=== PATIENT | female | born 1950 | race Asian ===

== ENCOUNTER 2017-02-01 08:05 | Inpatient (IN) | payer MEDICARE ==
[2017-02-01 08:55] LABS: ABSOLUTE NEUTROPHIL COUNT 10.9 K/mm3 (1.8-7.7); BASO % 0.2 % (0.2-1.0); HEMATOCRIT 27.3 % (37.0-47.0); HEMOGLOBIN 8.7 gm/l (12.0-16.0); IMM NEUT% 0.3 % (0-1); LYMPH # 1.1 (1.0-4.8); LYMPH % 8.8 % (15-45); MEAN CELL VOLUME 88.6 fl (81.0-99.0); MEAN CORPUSCULAR HEMOGLOBIN 28.2 pg (27.0-31.0); MEAN CORPUSCULAR HGB CONC 31.9 g/dl (33.0-37.0); MEAN PLATELET VOLUME 10.4 fl (7.4-10.4); MONO # 0.7 (0.0-0.8); MONO % 5.4 % (4-12); NEUT % 85.3 % (43-75); PLATELET COUNT 331 K/mm3 (130-400); RED CELL DISTRIBUTION WIDTH 13.2 % (11.5-14.5)
[2017-02-01 09:08] LABS: SPECIFIC GRAVITY 1.015 (1.001-1.030); URINE BILIRUBIN NEGATIVE (NEGATIVE); URINE BLOOD NEGATIVE (NEGATIVE); URINE GLUCOSE (UA) NEGATIVE (NEGATIVE); URINE LEUKOCYTE ESTERASE TRACE (NEGATIVE); URINE NITRITE NEGATIVE (NEGATIVE); URINE PROTEIN NEGATIVE (NEGATIVE); URINE UROBILINOGEN NORMAL (0-1 mg/dl)
[2017-02-01 09:09] LABS: URINE APPEARANCE CLEAR; URINE COLOR YELLOW
[2017-02-01 09:10] LABS: TROPONIN I 0.11 ng/ml (0.0-0.06)
[2017-02-01 09:12] LABS: ALBUMIN 2.3 gm/dL (3.5-5.7)
--- NOTE | 2017-02-01 09:18 | CT ---
HEAD W/O CON COMPARISON: Head CT, 02/10/2011 HISTORY: Acute confusion. TECHNIQUE: Using a [employer] Aquilion [address] scanner, images were obtained through the head. An automated dose reduction technique was used to minimize patient radiation dose. DOSE INFORMATION: CTDIvol (mGy): 51.70 DLP(mGycm): 1412.90 FINDINGS: Mass: None Intracranial Hemorrhage: None Acute Infarction: None Cerebral hemispheres: No acute finding. Old focus of decreased attenuation in the left external capsule. Basal ganglia: Normal Thalami: Normal Brainstem: Normal Cerebellum: Normal Ventricles: Normal Basilar cisterns: Normal Corpus callosum: Normal Pituitary fossa: Normal Middle ears and mastoid air cells: Normal Orbits and sinuses: Normal Skull and scalp: Normal Dural sinuses and vessels: Normal IMPRESSION: 1. No acute finding. Old small lacunar infarct, left external capsule. The report was sent to the emergency department electronic medical record system, 02/01/2017 at 9:19
[2017-02-01] MEDS ORDERED: PANTOPRAZOLE SODIUM 40 MG VIAL IV ONE ×3 (09:23→13:15)
--- NOTE | 2017-02-01 09:23 | RAD ---
CHEST-AP BEDSIDE COMPARISON: Portable chest x-ray, 02/10/2011 HISTORY: 66-year-old female with confusion. 4 days ago, cough and abnormal voice. Patient collapsed last night and today is confused. Emesis. FINDINGS: Views: Frontal chest. Lungs: Asymmetry and increased attenuation, greater on the left than the right. Heart and vessels: Normal Trachea and bronchi: Normal Mediastinum and celio: Normal Costophrenic sulci: Normal Chest wall and bones: Normal Upper abdomen: Normal. IMPRESSION: Infiltrate causing increased density in the left lung, most likely involving the left lower lobe. Evidence of pneumonia.
[2017-02-01] MEDS ORDERED: FAMOTIDINE 10 MG/ML 2ML VIAL ONE (09:24)
[2017-02-01 09:28] LABS: URINE BACTERIA RARE; URINE EPITHELIAL CELLS 0-1 /hpf; URINE RBC RARE /hpf; URINE WBC 0-2 /hpf
[2017-02-01] MEDS ORDERED: POTASSIUM CHLORIDE 20 MEQ TAB.PRT.SR ONE ×2 (10:03→10:12)
[2017-02-01] MEDS ORDERED: POTASSIUM CHLORIDE 10MEQ/100ML 100 ML IV ONE (10:03)
[2017-02-01] MEDS ORDERED: CEFTRIAXONE 1 GRAM DUPLEX 50 ML IV ONE (10:03)
[2017-02-01] MEDS ORDERED: BISACODYL 5 MG TABLET.EC PO PRN (10:48)
[2017-02-01] MEDS ORDERED: MENTHOL/CETYLPYRD 1 EACH LOZENGE PO PRN (10:48)
[2017-02-01] MEDS ORDERED: BISACODYL 10 MG SUP PR PRN (10:48)
[2017-02-01] MEDS ORDERED: SODIUM CHLORIDE 0.9% 100 ML IV PRN (10:48)
[2017-02-01] MEDS ORDERED: BLISTEX LIPSTICK 1 EACH TP PRN (10:48)
[2017-02-01] MEDS ORDERED: MAGNESIUM HYDROXIDE 30 ML UDCUP PO PRN (10:48)
[2017-02-01] MEDS ORDERED: POTASSIUM CHLORIDE 60 MEQ in SODIUM CHLORIDE 0.9% 500 ML IV ONE (11:00)
[2017-02-01 11:54] VITALS: BMI 29.8
[2017-02-01] MEDS: PANTOPRAZOLE SODIUM 80 MG in SODIUM CHLORIDE 0.9% 100 ML IV SCH ×2 (12:00→21:26)
[2017-02-01] MEDS: AZITHROMYCIN 500 MG in SODIUM CHLORIDE 0.9% 250 ML IV SCH (12:00)
[2017-02-01] MEDS ORDERED: PUMP TUBING ONE (12:02)
[2017-02-01] MEDS ORDERED: QUETIAPINE FUMARATE 50 MG TABLET PO PRN (13:45)
[2017-02-01] MEDS ORDERED: PNEUMOCOCCAL 23-VAL P-SAC VAC 0.5 ML VIAL IM V ONE (14:09)
[2017-02-01 14:34] LABS: HEMATOCRIT 27.4 % (37.0-47.0); HEMOGLOBIN 8.6 gm/l (12.0-16.0)
[2017-02-01] MEDS: ACETAMINOPHEN 325 MG TABLET PO PRN (15:02)
[2017-02-01] MEDS: CLONAZEPAM 0.5 MG TABLET PO PRN (15:02)
[2017-02-01] MEDS: NS/Potassium Chlor 20 mEq 1,000 ML IV SCH (15:40)
--- NOTE | 2017-02-01 15:51 | HP ---
JENY YE [id number] DATE OF ADMISSION: 02/01/2017 CHIEF COMPLAINT: Confusion. HISTORY OF PRESENT ILLNESS: The patient is a 66-year-old female with a past medical history significant for prior strokes, chronic essential hypertension and chronic depression with anxiety who was first noted to have some confusion yesterday evening at around 10:00 P.M. This morning she required help to get to the bathroom and had increased weakness. Her legs gave-out and she was unable to get off the floor. She has had chronic cough, reportedly nonproductive. In the emergency department her workup included a CT of the head and a chest x-ray, showing infiltrate in the left lung base. A CT of the head showed evidence of an old lacunar infarct. The emergency department physician noted some dried maroon-colored crust on the patient's clothing. Apparently she has had some vomiting at home and the patient was hemoccult positive, suspicious for an upper GI bleed. The patient was referred to the Hospitalist Service for admission and placed in the Intermediate Care Unit due to concerns about active bleeding. The patient also had evidence of acute kidney injury and acute blood loss anemia, with a hemoglobin of 8.7. REVIEW OF SYSTEMS: Review of systems is really not possible due to the patient's confusion which is still present. PAST MEDICAL HISTORY: Significant for: 1. Severe chronic depression. The patient has had multiple psychiatric hospitalizations and has even reached a point of being psychotic from her depression. 2. She also has had some chronic anxiety. 3. A history of conversion disorder. 4. She has had hematochezia in the past. She was actually scheduled for an outpatient colonoscopy tomorrow. She had a screening colonoscopy in the past, which has been negative. 5. She has a history of stroke symptoms in the past. Her head CT showed evidence of an old small lacunar infarct involving the left internal capsule. 6. She has sleep apnea, but this is untreated. 7. Chronic essential hypertension. 8. She has chronic pain and is on an opioid contract with her primary care provider for management of this. PAST SURGICAL HISTORY: Significant for a previous appendectomy, but I think that is all. ALLERGIES: No known drug allergies. CURRENT MEDICATIONS: Consist of: 1. Seroquel 50 mg at bedtime as needed for sleep. 2. Pravachol 20 mg daily. 3. Percocet 2 every six hours as needed for her chronic pain. 4. Flexeril 10 mg twice daily as needed for spasm. 5. Klonopin 0.5 mg twice daily as needed for anxiety. 6. Amitriptyline 150 mg at bedtime. 7. Abilify 15 mg daily. FAMILY HISTORY: Family history is not well known. SOCIAL HISTORY: The patient is single. She is . She is living with her son who is disabled. She had six children. She has never smoked. She quit drinking alcohol at the age of 64. Prior to that she did drink heavily. She denies any history of illicit drug use. PRIMARY CARE PROVIDER: Doretha Sibley Family Nurse Practitioner. PHYSICAL EXAMINATION: VITAL SIGNS: Body mass index is 29.8. Weight is 83.8 kilograms. Vitals in the emergency department showed a blood pressure as low as 104/62, pulse of 90, respirations 18, and oxygen saturation is 96% on room air. GENERAL: This is a slightly obese elderly female in no acute distress. HEENT: Shows moist pink oral mucosa. NECK: Supple, without lymphadenopathy or thyromegaly. LUNGS: Clear to auscultation bilaterally. CARDIOVASCULAR: Reveals a regular rate and rhythm, without a murmur. ABDOMEN: Obese, soft, nontender and nondistended, with positive bowel sounds. PELVIC: Exam is deferred. RECTAL: Exam performed in the emergency department did show a hemoccult positive stool. EXTREMITIES: Lower extremities show bilateral varicose veins, but no edema. SKIN: Warm, dry and intact. LABORATORY STUDIES: White blood cell count is mildly elevated at 12.8, hemoglobin is 8.7 and platelet count is 331,000. Lactate is 1.9. Chemistry profile shows a sodium of 134, potassium is 2.8, carbon dioxide is 29, BUN is 60 and creatinine 1.5. Troponin-I is elevated at 0.11. Albumin is 2.3. Urinalysis is unremarkable. DIAGNOSTIC IMAGING STUDIES: Included: 1. A chest x-ray, showing an infiltrate in the left base. 2. The CT, with the results as mentioned above. ASSESSMENT: 1. The patient has bacterial pneumonia, community-acquired. She will be treated with Rocephin and Zithromax. 2. She has evidence of acute kidney injury, with her creatinine elevated at 1.5 and a baseline creatinine of 0.2 - 0.9. 3. She has hypokalemia, fairly severe. She has elevated troponin levels. Suspect this is due to the acute kidney injury. She will be given potassium replacement for her hypokalemia. 4. She has evidence of acute blood loss anemia. 5. She has suspected upper GI bleeding based on her presentation and will be treated with a Protonix drip and placed on clear liquids. If her hemoglobin is stable, consider advancing her diet. 6. The patient has evidence of acute metabolic encephalopathy. I suspect this is secondary to the patient's underlying cardiovascular disease combined with the acute infection, and anticipate this should resolve with time and treatment. PLAN: She will be admitted to the Intermediate Care Unit due to the multiple complicated medical problems that she has. VTE risk is moderate and mechanical measures will be used for prophylaxis. cc: Dr. Doretha Sibley
[2017-02-01] MEDS: AMITRIPTYLINE HCL 75 MG TABLET PO SCH (21:31)
[2017-02-01 21:39] LABS: HEMATOCRIT 24.8 % (37.0-47.0)
[2017-02-01 22:01] LABS: CALCIUM 10.9 mg/dL (8.6-10.3)
[2017-02-01] MEDS ORDERED: POTASSIUM CHLORIDE 20 MEQ TAB.PRT.SR PO ONE (22:17)
[2017-02-01] MEDS ORDERED: MAGNESIUM SULFATE 2 G/50 ML 2 G in Premix (Water) 50 ml 1 EACH IV ONE (22:20)
[2017-02-01] MEDS: DOCUSATE SODIUM 100 MG CAPSULE PO SCH (22:42)
[2017-02-01] MEDS ORDERED: MAGNESIUM SULFATE 1 G/100 ML 100 ML IV ONE ×2 (22:44→22:46)
[2017-02-01] MEDS: MAGNESIUM SULFATE 1 G/100 ML 1 G in PREMIX BAG 1 EACH IV SCH (22:56)
[2017-02-02] MEDS: MAGNESIUM SULFATE 1 G/100 ML 1 G in PREMIX BAG 1 EACH IV SCH (00:03)
[2017-02-02] MEDS: CLONAZEPAM 0.5 MG TABLET PO PRN ×2 (00:28→22:49)
[2017-02-02] MEDS: NS/Potassium Chlor 20 mEq 1,000 ML IV SCH ×2 (00:29→08:36)
[2017-02-02 06:09] LABS: ABSOLUTE NEUTROPHIL COUNT 4.2 K/mm3 (1.8-7.7); BASO % 0.3 % (0.2-1.0); EOS # 0.2 (0.0-0.5); EOS % 2.5 % (0.9-2.9); HEMATOCRIT 22.1 % (37.0-47.0); HEMOGLOBIN 7.2 gm/l (12.0-16.0); IMM NEUT% 0.3 % (0-1); LYMPH # 1.8 (1.0-4.8); LYMPH % 26.9 % (15-45); MEAN CORPUSCULAR HEMOGLOBIN 28.7 pg (27.0-31.0); MEAN CORPUSCULAR HGB CONC 32.6 g/dl (33.0-37.0); MEAN PLATELET VOLUME 10.4 fl (7.4-10.4); MONO # 0.5 (0.0-0.8); MONO % 7.9 % (4-12); NEUT % 62.1 % (43-75); PLATELET COUNT 268 K/mm3 (130-400); RED CELL DISTRIBUTION WIDTH 13.6 % (11.5-14.5)
[2017-02-02 06:30] LABS: MAGNESIUM 1.6 mg/dL (1.9-2.7)
[2017-02-02 07:29] LABS: PLATELET ESTIMATE NORMAL (NORMAL)
[2017-02-02] MEDS: PANTOPRAZOLE SODIUM 80 MG in SODIUM CHLORIDE 0.9% 100 ML IV SCH ×2 (08:36→20:12)
[2017-02-02] MEDS: CEFTRIAXONE 1 GRAM DUPLEX 1 G in Premix (D5W) 50 ml 1 EACH IV SCH (09:05)
--- NOTE | 2017-02-02 10:14 | PDOC43 ---
- Subjective Chief Complaint: Confusion, weakness Subjective: Reports Tolerating Diet Well, Reports Urinating Without Difficulty, Reports Other (still confused), Denies Fever - Objective Vital Signs Temperature 98.4 F 02/01/17 23:00 Pulse Rate 76 02/02/17 03:00 Respiratory Rate 26 02/02/17 03:42 Blood Pressure 120/62 02/02/17 03:00 O2 Saturation by Pulse Oximetry 94 02/02/17 03:00 Oxygen Delivery Method Room Air Oxygen Flow Rate 0 Intake and Output 02/01/17 02/02/17 02/03/17 06:59 06:59 06:59 Intake Total 5783 Output Total 2049 Balance 3733 General: Alert, Cooperative, Other (oriented to person and year but thinks that she is in [place]) HEENT: Mucous membr. moist/pink Lungs: Clear to Auscultation Bilaterally Cardiovascular: Regular Rate and Rhythm Abdomen: Soft, Normal Bowel Sounds, Non-Distended, No Tenderness Extremities: No Edema Laboratory 02/02/17 05:30 02/02/17 05:30 02/02/17 02/01/17 05:30 21:25 RBC 2.51 L MCHC 32.6 L Anion Gap 6 L BUN 38 H 49 H Estimated GFR 45 L 38 L Calcium 10.9 H Magnesium 1.6 L 1.0 L Troponin I 0.07 H Current Medications: Current meds reviewed in EMR. 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 Protonix, consult with surgery, consider transfusion if further drop- anticipate EGD this am (4) Hypokalemia Status: AcuteAssessment/Plan: potassium improved from 2.8 to 3.7, unclear cause-will follow (5) Hypomagnesemia Status: AcuteAssessment/Plan: magnesium improving from 1.0 to 1.6 (6) Acute kidney failure Qualifiers: Acute renal failure type: unspecified Qualifier Code: (N17.9) Acute kidney failure, unspecified Status: AcuteAssessment/Plan: Creatinine improved from 1.5 to 1.2 with hydration (7) Troponin level elevated Status: AcuteAssessment/Plan: suspect due to acute kidney injury (8) Depression Qualifiers: Depression Type: unspecified Qualifier Code: (F32.9) Major depressive disorder, single episode, unspecified Status: AcuteAssessment/Plan: chronic, severe, appears stable at baseline VTE Prophylaxis: [facility] measures Disposition: likely home in 1-2 days Additional Comments: likely downgrade to Med/ Surg if EGD is reassuring
[2017-02-02] MEDS ORDERED: D5 1/2NS with 20 mEq KCL 1,000 ML IV SCH (10:15)
[2017-02-02] MEDS ORDERED: LACTATED RINGERS 1,000 ML ONE (10:16)
[2017-02-02] MEDS ORDERED: LACTATED RINGERS 1,000 ML IV.SOLN ONE (11:35)
[2017-02-02] MEDS ORDERED: PROPOFOL 200 MG/20 ML VIAL IV ONE (11:35)
[2017-02-02] MEDS ORDERED: LIDOCAINE 2% (PRES FREE) 5 ML VIAL ONE (11:35)
[2017-02-02] MEDS ORDERED: MIDAZOLAM HCL 1 MG/ML 2ML VIAL ONE (11:35)
[2017-02-02] MEDS ORDERED: GLYCOPYRROLATE 0.2 MG/ML 1ML VIAL ONE (11:35)
[2017-02-02] MEDS ORDERED: KETAMINE HCL UD SYRINGE 100 MG/2 ML IV ONE (11:35)
[2017-02-02] MEDS ORDERED: LIDOCAINE Viscous 2% 15 ML UDCUP ONE (12:03)
[2017-02-02] MEDS: AZITHROMYCIN 500 MG in SODIUM CHLORIDE 0.9% 250 ML IV SCH (12:55)
[2017-02-02] MEDS: ARIPIPRAZOLE 5 MG TABLET PO SCH (13:58)
[2017-02-02] MEDS: Magnesium Oxide 400 MG TABLET PO SCH ×3 (13:58→20:11)
[2017-02-02] MEDS: PRAVASTATIN SODIUM 10 MG TABLET PO SCH (13:58)
[2017-02-02] MEDS: DOCUSATE SODIUM 100 MG CAPSULE PO SCH ×2 (13:58→20:11)
[2017-02-02] MEDS ORDERED: IOPAMIDOL 370 (76%) 100 ML VIAL IV ONE (16:20)
--- NOTE | 2017-02-02 17:11 | CT ---
ABD/PELVIS W/ CON COMPARISON: None. HISTORY: 66-year-old female who had upper endoscopy, identifying a mass versus ulcer at the antrum of the stomach or the duodenal bulb. Technique: Oral contrast was administered. Intravenous injection 100 mL mL Isovue 370. Using a [employer] Aquilion [address] scanner, images were obtained from the diaphragm to the floor the pelvis. An automated dose reduction technique was used to minimize patient radiation dose. Dose information: CTDIvol (mGy): 19.70 DLP(mGycm): 1003.70 FINDINGS: Lung bases: Scattered infiltrates in the left lung base, associated with a mild left pleural effusion. Inferior mediastinum and heart: Normal. Liver: Normal. Gallbladder:Normal. Bile ducts: Normal. Pancreas: Atrophy. Spleen: Normal. Adrenal glands: Normal. Kidneys: In the right kidney, multiple probable cysts up to 10 mm. In the left renal collecting system, without obstruction, 17.0 mm and 3.9 mm calcifications. Ureters: Normal Urinary bladder: Normal. Uterus and adnexa: Normal. Blood vessels: Mild atherosclerosis. Lymph nodes: Normal Stomach: Distention with oral contrast. The gastric antrum is normal. No mass, but probable ulcer of the pylorus or first portion of the duodenum. Duodenum: Possible small ulcer at the junction of the pylorus and the first portion of duodenum. No mass. Small intestine: Normal Appendix: Not visible. Possibly removed. Colon: Normal Abdominal wall and supporting musculature: Normal Bones: Severe degenerative changes L1-2, L3-4, and L4-5, mild at the remainder of the spine. No lytic or blastic lesions. IMPRESSION: 1. No mass or ulcer seen at the gastric antrum. Probable small ulcer at the junction of the pylorus and first portion of duodenum. Correlate with endoscopy findings. 2. No lymphadenopathy. 3. Normal liver. 4. Incidentally noted multiple cysts up to 10 mm in the right kidney and 2 calcifications of the left kidney, 17 and 3.9 mm. 5. Nonvisualization of the pancreas. 6. Degenerative changes in the spine. 7. Probable dependent atelectasis and minimal effusion in the left lung base. The results were discussed with Jim Kolb III, MD 02/02/2017 at 17:07
[2017-02-02] MEDS: AMITRIPTYLINE HCL 75 MG TABLET PO SCH (20:11)
[2017-02-02 21:09] LABS: HELICOBACTER PYLORII DETECTION NEGATIVE (NEGATIVE)
[2017-02-02] MEDS: ACETAMINOPHEN 325 MG TABLET PO PRN (22:49)
[2017-02-03] MEDS ORDERED: PUMP TUBING ONE (06:03)
[2017-02-03 06:10] LABS: ABSOLUTE NEUTROPHIL COUNT 3.7 K/mm3 (1.8-7.7); BASO % 0.3 % (0.2-1.0); EOS # 0.2 (0.0-0.5); HEMATOCRIT 22.2 % (37.0-47.0); HEMOGLOBIN 7.1 gm/l (12.0-16.0); IMM NEUT% 0.4 % (0-1); LYMPH # 2.4 (1.0-4.8); LYMPH % 34.1 % (15-45); MEAN CELL VOLUME 89.2 fl (81.0-99.0); MEAN CORPUSCULAR HEMOGLOBIN 28.5 pg (27.0-31.0); MEAN PLATELET VOLUME 10.1 fl (7.4-10.4); MONO # 0.6 (0.0-0.8); NEUT % 54.2 % (43-75); PLATELET COUNT 288 K/mm3 (130-400); RED CELL DISTRIBUTION WIDTH 13.8 % (11.5-14.5)
[2017-02-03] MEDS: PANTOPRAZOLE SODIUM 80 MG in SODIUM CHLORIDE 0.9% 100 ML IV SCH (06:10)
[2017-02-03] MEDS: ACETAMINOPHEN 325 MG TABLET PO PRN ×3 (06:19→21:10)
[2017-02-03 07:00] LABS: I-STAT CREATININE 1.1 mg/dL (0.6-1.3)
[2017-02-03] MEDS: ARIPIPRAZOLE 5 MG TABLET PO SCH (10:07)
[2017-02-03] MEDS: PRAVASTATIN SODIUM 20 MG TABLET PO SCH (10:07)
[2017-02-03] MEDS: DOCUSATE SODIUM 100 MG CAPSULE PO SCH ×2 (10:07→20:51)
[2017-02-03] MEDS: Magnesium Oxide 400 MG TABLET PO SCH ×3 (10:07→20:51)
[2017-02-03] MEDS: CEFTRIAXONE 1 GRAM DUPLEX 1 G in Premix (D5W) 50 ml 1 EACH IV SCH (10:14)
[2017-02-03] MEDS: PRAVASTATIN SODIUM 10 MG TABLET PO SCH (10:17)
[2017-02-03] MEDS: PANTOPRAZOLE SODIUM 40 MG VIAL IV SCH ×2 (10:48→20:51)
[2017-02-03] MEDS: AZITHROMYCIN 500 MG in SODIUM CHLORIDE 0.9% 250 ML IV SCH (10:54)
--- NOTE | 2017-02-03 11:05 | PDOC43 ---
- Subjective Chief Complaint: Confusion, weakness Subjective: Reports Tolerating Diet Well, Reports Other (some dizziness on moving today), Denies Abdominal Pain, Denies Vomiting - Objective Vital Signs Temperature 97.2 F 02/03/17 08:00 Pulse Rate 72 02/03/17 08:00 Respiratory Rate 16 02/03/17 08:00 Blood Pressure 110/56 02/03/17 08:00 O2 Saturation by Pulse Oximetry 98 02/03/17 08:00 Oxygen Delivery Method Room Air Oxygen Flow Rate 0 Intake and Output 02/02/17 02/03/17 02/04/17 06:59 06:59 06:59 Intake Total 5783 4049 Output Total 2050 1100 Balance 3733 2949 General: Alert, Oriented x3, Cooperative, No Acute Distress HEENT: Mucous membr. moist/pink Lungs: Other (some ronchi over left base) Cardiovascular: Regular Rate and Rhythm Abdomen: Soft, Normal Bowel Sounds, Non-Distended, No Tenderness Extremities: No Edema Laboratory 02/03/17 05:30 02/03/17 05:30 02/03/17 05:30 RBC 2.49 L MCHC 32.0 L Ionized Calcium 1.37 H Current Medications: Current meds reviewed in EMR. 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 Protonix, add carafate , IV iron today, transfuse if HGB<7 or if remains symptomatic (4) Hypokalemia Status: AcuteAssessment/Plan: potassium improved from 2.8 to 3.7, unclear cause-will follow (5) Hypomagnesemia Status: AcuteAssessment/Plan: magnesium improving from 1.0 to 1.6 (6) Acute kidney failure Qualifiers: Acute renal failure type: unspecified Qualifier Code: (N17.9) Acute kidney failure, unspecified Status: AcuteAssessment/Plan: Creatinine improved from 1.5 to 1.2 with hydration-resolved (7) Troponin level elevated Status: AcuteAssessment/Plan: suspect due to acute kidney injury (8) Depression Qualifiers: Depression Type: unspecified Qualifier Code: (F32.9) Major depressive disorder, single episode, unspecified Status: AcuteAssessment/Plan: chronic, severe, appears stable at baseline (9) Duodenal ulcer with hemorrhage Status: AcuteAssessment/Plan: causing acute blood loss anemia, but no active bleeding now, associated with severe esophagitis, H. Pylori testing is negative-D/W Dr Centeno, will keep on liquid versus soft diet until seen in follow up, carafate and PPI therapy VTE Prophylaxis: [facility] measures Disposition: likely home in am
[2017-02-03] MEDS ORDERED: IRON SUCROSE COMPLEX 300 MG in SODIUM CHLORIDE 0.9% 250 ML IV ONE (11:15)
[2017-02-03 11:38] LABS: MAGNESIUM 1.6 mg/dL (1.9-2.7)
[2017-02-03] MEDS: SUCRALFATE 1 G TABLET PO SCH ×3 (13:59→20:51)
[2017-02-03 15:32] LABS: HEMATOCRIT 24.6 % (37.0-47.0); HEMOGLOBIN 7.6 gm/l (12.0-16.0)
[2017-02-03] MEDS ORDERED: SODIUM CHLORIDE 0.9% FLUSH 10 ML ONE (17:22)
[2017-02-03] MEDS ORDERED: IV START KIT ONE (17:22)
[2017-02-03] MEDS: AMITRIPTYLINE HCL 75 MG TABLET PO SCH (21:10)
[2017-02-04 05:56] LABS: ABSOLUTE NEUTROPHIL COUNT 4.3 K/mm3 (1.8-7.7); BASO % 0.4 % (0.2-1.0); EOS # 0.3 (0.0-0.5); EOS % 3.8 % (0.9-2.9); HEMATOCRIT 23.4 % (37.0-47.0); HEMOGLOBIN 7.2 gm/l (12.0-16.0); IMM NEUT # 0.1 K/mm3 (0-0.2); IMM NEUT% 0.9 % (0-1); LYMPH # 2.3 (1.0-4.8); LYMPH % 29.9 % (15-45); MEAN CELL VOLUME 91.8 fl (81.0-99.0); MEAN CORPUSCULAR HEMOGLOBIN 28.2 pg (27.0-31.0); MEAN CORPUSCULAR HGB CONC 30.8 g/dl (33.0-37.0); MEAN PLATELET VOLUME 9.9 fl (7.4-10.4); MONO # 0.7 (0.0-0.8); MONO % 8.7 % (4-12); NEUT % 56.3 % (43-75); PLATELET COUNT 316 K/mm3 (130-400); RED CELL DISTRIBUTION WIDTH 14.1 % (11.5-14.5)
[2017-02-04 06:20] LABS: CALCIUM 7.9 mg/dL (8.6-10.3)
[2017-02-04] MEDS: SUCRALFATE 1 G TABLET PO SCH ×4 (07:49→20:20)
[2017-02-04] MEDS ORDERED: SODIUM CHLORIDE 0.9% 500 ML IV PRN (08:44)
[2017-02-04] MEDS ORDERED: ARIPIPRAZOLE 10 MG TABLET PO SCH (09:00)
[2017-02-04] MEDS: ASCORBIC ACID 500 MG TABLET PO SCH (09:21)
[2017-02-04] MEDS: Magnesium Oxide 400 MG TABLET PO SCH ×3 (09:21→21:12)
[2017-02-04] MEDS: DOCUSATE SODIUM 100 MG CAPSULE PO SCH ×2 (09:21→21:12)
[2017-02-04] MEDS: PANTOPRAZOLE 40 MG TABLET DR PO SCH ×2 (09:21→21:12)
[2017-02-04] MEDS: FERROUS SULFATE (65 Fe) 325 MG TABLET PO SCH (09:21)
[2017-02-04] MEDS: CEFTRIAXONE 1 GRAM DUPLEX 1 G in Premix (D5W) 50 ml 1 EACH IV SCH (10:14)
[2017-02-04] MEDS: PRAVASTATIN SODIUM 20 MG TABLET PO SCH (10:14)
[2017-02-04] MEDS ORDERED: SODIUM CHLORIDE 0.9% 250 ML IV ONE (10:26)
[2017-02-04] MEDS ORDERED: BLOOD Y PLUMSET W/CASSETTE ONE ×2 (10:26→14:09)
[2017-02-04] MEDS: ACETAMINOPHEN 325 MG TABLET PO PRN (11:32)
--- NOTE | 2017-02-04 16:20 | PDOC43 ---
- Subjective Chief Complaint: Confusion, weakness Patient reported to still feel dizzy this am, now getting additional blood. Pt reports feeling better after blood started this afternoon. Ate ok, BM not melanotic today. Reports feeling anxious about going home today, would like to go home tomorrow. - Objective Vital Signs Temperature 98.9 F 02/04/17 15:28 Pulse Rate 81 02/04/17 15:28 Respiratory Rate 16 02/04/17 15:28 Blood Pressure 142/77 02/04/17 15:28 O2 Saturation by Pulse Oximetry 100 02/04/17 15:28 Oxygen Delivery Method Room Air Oxygen Flow Rate 0 Vital Signs Last 12 Hours Temp Pulse Resp BP Pulse Ox 02/04/17 15:28 98.9 F 81 16 142/77 100 02/04/17 14:58 98.8 F 78 16 129/77 100 02/04/17 14:43 98.4 F 79 18 128/75 100 02/04/17 13:32 98.5 F 81 16 150/70 100 02/04/17 13:17 98.5 F 89 16 131/77 100 02/04/17 13:00 16 02/04/17 12:47 98.6 F 90 16 146/76 100 02/04/17 12:17 98.1 F 79 16 136/79 100 02/04/17 11:47 98.4 F 79 16 145/84 100 02/04/17 11:32 98.5 F 81 16 144/78 100 02/04/17 11:17 98.5 F 81 16 144/78 100 02/04/17 11:15 98.6 F 77 16 141/83 99 02/04/17 07:55 16 02/04/17 07:44 98.5 F 70 17 116/64 99 Intake and Output 02/02/17 02/03/17 02/04/17 23:59 23:59 23:59 Intake Total 6062 3248 1440 Output Total 1500 2100 1800 Balance 4562 1148 -360 General: Alert, Cooperative Lungs: Clear to Auscultation Bilaterally, Normal Air Movement, Other ( occasional cough, sl loose sounding.) Cardiovascular: Regular Rate and Rhythm Abdomen: Soft, Normal Bowel Sounds, Non-Distended Extremities: No Edema Skin: Normal Color Neurological: Normal Speech Laboratory 02/04/17 05:30 02/04/17 05:30 02/04/17 02/02/17 05:30 05:30 RBC 2.55 L MCHC 30.8 L Anion Gap 7 L Calcium 7.9 L Crossmatch See Detail Current Medications: Current meds reviewed in EMR. Active Medications Acetaminophen (Tylenol) 650 mg PO Q6H PRN PRN Reason: Pain or Temperature > 100.5 F Last Admin: 02/04/17 11:32 Dose: 650 mg Amitriptyline HCl (Elavil) 150 mg PO BEDTIME [facility] Aripiprazole (Abilify) 15 mg PO DAILY [facility] Ascorbic Acid (Vitamin C) 500 mg PO DAILY [facility] Last Admin: 02/04/17 09:21 Dose: 500 mg Benzocaine/Menthol (Cepacol) 1 each PO PRN PRN PRN Reason: Sore Throat Bisacodyl (Dulcolax) 10 mg MA DAILY PRN PRN Reason: Constipation Bisacodyl (Dulcolax) 5 mg PO DAILY PRN PRN Reason: Constipation Clonazepam (Klonopin) 0.5 mg PO BID PRN PRN Reason: Anxiety Last Admin: 02/02/17 22:49 Dose: 0.5 mg Docusate Sodium (Colace) 100 mg PO BID [facility] Last Admin: 02/04/17 09:21 Dose: 100 mg Ferrous Sulfate (Ferrous Sulfate) 325 mg PO DAILY [facility] Last Admin: 02/04/17 09:21 Dose: 325 mg Sodium Chloride (Sodium Chloride 0.9%) 100 mls @ 25 mls/hr IV PRN PRN PRN Reason: Flush Last Admin: 02/03/17 02:27 Dose: 25 mls/hr Ceftriaxone Sodium/Dextrose 1 (g/ Premix (D5W) 50 ml) 50 mls @ 100 mls/hr IV Q24H [facility] Last Admin: 02/04/17 10:14 Dose: 100 mls/hr Sodium Chloride (Sodium Chloride 0.9%) 500 mls @ 25 mls/hr IV .Q20H PRN PRN Reason: Blood Transfusion Magnesium Hydroxide (Milk Of Magnesia) 30 ml PO DAILY PRN PRN Reason: Constipation Last Admin: 02/02/17 20:10 Dose: 30 ml Magnesium Oxide (Magnesium Oxide) 800 mg PO TID [facility] Last Admin: 02/04/17 09:21 Dose: 800 mg Pantoprazole Sodium (Protonix) 40 mg PO BID [facility] Last Admin: 02/04/17 09:21 Dose: 40 mg Petrolatum/Paraffin/Mineral Oil (Blistex) 1 each TP PRN PRN PRN Reason: Dry and/or chapped lips Pravastatin Sodium (Pravachol) 20 mg PO DAILY [facility] Last Admin: 02/04/17 10:14 Dose: 20 mg Quetiapine Fumarate (Seroquel) 50 mg PO BEDTIME PRN PRN Reason: Sleep Last Admin: 02/01/17 23:00 Dose: 50 mg Sodium Chloride (Normal Saline 10ml Flush) 10 ml IV Q8HR [facility] Last Admin: 02/04/17 11:24 Dose: Not Given Sodium Chloride (Normal Saline 10ml Flush) 10 ml IV PRN PRN Last Admin: 02/03/17 20:50 Dose: 10 ml Sucralfate (Carafate) 1 g PO ACBEDTIME [facility] Last Admin: 02/04/17 11:32 Dose: 1 g - Problems: Assessment/Plan (1) Acute blood loss anemia Status: AcuteAssessment/Plan: likely acute UGI bleeding based on Hx, on Protonix, no BM since admit and 3L positive fluid balance(likely dilutional component)- cont. Protonix, add carafate, IV iron today, transfuse if HGB<7 or if remains symptomatic Hb 8.6 on admit->7.2 this am, getting second unit. Recheck in am. (2) Acute kidney failure Qualifiers: Acute renal failure type: unspecified Qualifier Code: (N17.9) Acute kidney failure, unspecified Status: ResolvedAssessment/Plan: Resolved. Creatinine improved from 1.5 to 0.9 with hydration (3) Duodenal ulcer with hemorrhage Status: AcuteAssessment/Plan: causing acute blood loss anemia, but no active bleeding now, associated with severe esophagitis, Biopsy pending, but size of specimen obtained may not have been adequate. H. Pylori testing is negative-D/W Dr Centeno, will keep on liquid versus soft diet until seen in follow up, Continue carafate and PPI therapy (4) Hypokalemia Status: AcuteAssessment/Plan: Now resolved. potassium improved from 2.8 to 3.7, cause for hypokalemia unclear (5) Hypomagnesemia Status: AcuteAssessment/Plan: magnesium improving from 1.0 to 1.6 continue po supplement (6) Pneumonia Qualifiers: Pneumonia type: due to unspecified organism Laterality: left Lung location: lower lobe of lung Qualifier Code: (J18.1) Lobar pneumonia, unspecified organism Status: AcuteAssessment/Plan: community acquired, bacterial treated with Rocephin and Zithromax, leukocytosis improved blood culture negative so far. VTE Prophylaxis: [facility] measures Disposition: likely home in am
[2017-02-04] MEDS ORDERED: AMITRIPTYLINE HCL 50 MG TABLET PO SCH (21:00)
[2017-02-04] MEDS: CLONAZEPAM 0.5 MG TABLET PO PRN (21:12)
[2017-02-05 06:44] LABS: HEMATOCRIT 28.3 % (37.0-47.0)
[2017-02-05] MEDS: SUCRALFATE 1 G TABLET PO SCH ×2 (07:44→11:08)
[2017-02-05 07:51] VITALS: BP 120/71
[2017-02-05] MEDS ORDERED: ARIPIPRAZOLE 5 MG TABLET PO SCH (09:00)
[2017-02-05] MEDS: DOCUSATE SODIUM 100 MG CAPSULE PO SCH (09:13)
[2017-02-05] MEDS: FERROUS SULFATE (65 Fe) 325 MG TABLET PO SCH (09:13)
[2017-02-05] MEDS: Magnesium Oxide 400 MG TABLET PO SCH (09:14)
[2017-02-05] MEDS: PRAVASTATIN SODIUM 20 MG TABLET PO SCH (09:14)
[2017-02-05] MEDS: PANTOPRAZOLE 40 MG TABLET DR PO SCH (09:14)
[2017-02-05] MEDS: ASCORBIC ACID 500 MG TABLET PO SCH (09:15)
--- NOTE | 2017-02-05 10:01 | PDOC43 ---
- Subjective Chief Complaint: Confusion, weakness Feels well today, no faintness or dyspnea. Eager to go home. - Objective Vital Signs Temperature 98.2 F 02/05/17 07:50 Pulse Rate 80 02/05/17 07:50 Respiratory Rate 17 02/05/17 07:52 Blood Pressure 120/71 02/05/17 07:50 O2 Saturation by Pulse Oximetry 99 02/05/17 07:50 Oxygen Delivery Method Room Air Oxygen Flow Rate 0 Intake and Output 02/04/17 02/05/17 02/06/17 05:59 06:59 06:59 Intake Total Output Total 350 Balance -350 General: Alert, Oriented x3, Cooperative, No Acute Distress HEENT: Mucous membr. moist/pink Lungs: Clear to Auscultation Bilaterally Cardiovascular: Regular Rate and Rhythm Abdomen: Soft, Normal Bowel Sounds, No Tenderness, No Masses Extremities: Normal Pulses, No Edema Skin: Normal Color Neurological: Normal Speech Psych/Mental Status: Normal Mood Laboratory 02/05/17 06:00 02/04/17 05:30 02/05/17 02/02/17 06:00 05:30 Magnesium 1.4 L Crossmatch See Detail Current Medications: Current meds reviewed in EMR. - Problems: Assessment/Plan (1) Acute blood loss anemia Status: AcuteAssessment/Plan: Due to duodenal ulcer. Improved post two units PRBC. (2) Depression Qualifiers: Depression Type: unspecified Qualifier Code: (F32.9) Major depressive disorder, single episode, unspecified Status: ChronicAssessment/Plan: chronic, severe, appears stable at baseline (3) Duodenal ulcer with hemorrhage Status: AcuteAssessment/Plan: causing acute blood loss anemia, but no active bleeding now, associated with severe esophagitis, Biopsy pending, but size of specimen obtained may not have been adequate. H. Pylori testing is negative-D/W Dr Centeno, will keep on liquid versus soft diet until seen in follow up, Continue carafate and PPI therapy (4) Hypokalemia Status: AcuteAssessment/Plan: Now resolved. cause for hypokalemia unclear (5) Hypomagnesemia Status: AcuteAssessment/Plan: magnesium improved continue po supplement (6) Pneumonia Qualifiers: Pneumonia type: due to unspecified organism Laterality: left Lung location: lower lobe of lung Qualifier Code: (J18.1) Lobar pneumonia, unspecified organism Status: AcuteAssessment/Plan: community acquired, bacterial treated with Rocephin and Zithromax, change to oral cefprozil on discharge. No hypoxemia. (7) Acute kidney failure Qualifiers: Acute renal failure type: unspecified Qualifier Code: (N17.9) Acute kidney failure, unspecified Status: ResolvedAssessment/Plan: Present on admit, associated with acute pneumonia and acute duodenal bleeding, resolved. (8) Acute metabolic encephalopathy Status: AcuteAssessment/Plan: Present on admit with confusion, suspect multifactorial due to blood loss and acute infection, resolved (9) Obesity (BMI 30.0-34.9) Status: ChronicAssessment/Plan: complicates care. VTE Prophylaxis: [facility] measures Disposition: discharge to home
[2017-02-05] MEDS: CEFTRIAXONE 1 GRAM DUPLEX 1 G in Premix (D5W) 50 ml 1 EACH IV SCH (10:49)
--- NOTE | 2017-02-05 13:25 | DS ---
JENY YE [id number] DATE OF : 1950 DATE OF ADMISSION: 02/01/2017 DATE OF DISCHARGE: 02/06/2017 ADMIT DIAGNOSES: 1. Bacterial pneumonia. 2. Acute kidney injury. 3. Acute metabolic encephalopathy. 4. Acute blood loss anemia. DISCHARGE DIAGNOSES: 1. Community acquired bacterial pneumonia in the left lower lobe. 2. Acute kidney injury, resolved. 3. Acute metabolic encephalopathy secondary to pneumonia, kidney injury, and gastrointestinal blood loss, resolved. 4. Acute blood loss anemia, improved with bleeding stopped. 5. Duodenal ulcer with acute bleeding. 6. Hypokalemia, resolved. 7. Hypomagnesemia, improved. 8. Cerebrovascular disease. 9. Benign essential hypertension. 10. Chronic anxiety. 11. Chronic depression. 12. Chronic pain. 13. Obstructive sleep apnea not under treatment. 14. Obesity with body mass index of 32.8. CONSULTATIONS: 1. Dr. Milagro Centeno. 2. Physical therapy and occupational therapy. PROCEDURES: 1. Head CT scan on 02/01/2017. 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 2. Esophagogastroduodenoscopy on 02/01/[address] Centeno showing atypical duodenal ulcer without active bleeding. Biopsies were obtained. 3. Abdominal and pelvic CT scan on 02/02/2017. This demonstrated the small ulcer at the junction of the pylorus and first portion of the duodenum. No lymphadenopathy. Normal liver. Incidentally noted renal cysts. Degenerative changes in the spine and dependent atelectasis in the left lung base. 4. Transfusion of 2 units packed red blood cells on 02/04/2017. HISTORY ON ADMISSION: Ms. Ye is a 66-year-old followed by Doretha Sibley. She was brought to [facility] Emergency Room by paramedics due to altered mental status, and weakness and a fall at home. She was noted to have some dried blood on her clothing and Hemoccult positive stool. She had an acute left lower lobe pneumonia, and acute kidney injury. HOSPITAL COURSE: The patient was admitted to intermediate care. She was treated with ceftriaxone and azithromycin for her pneumonia. She was given IV fluids and her kidney injury resolved. She was given replacement for her potassium and magnesium also with improvement. After upper endoscopy, she was treated with pantoprazole and Carafate and a soft diet. Her encephalopathy resolved, but she had persistent and symptomatic anemia and did require blood transfusion. On 02/05/2017, she is feeling well, has no shortness of breath, or faintness and is eager to be discharged to home. DISCHARGE PLAN: 1. Discharge to home. 2. Follow up with Dr. Milagro Centeno on 02/14/2017 at 10:15 a.m. 3. Follow up with Doretha Sibley, nurse practitioner on 02/13/2017 at 1:50 p.m. DISCHARGE DIET: Diet is soft foods. ACTIVITY: As tolerated. DISCHARGE MEDICATIONS: 1. Cefprozil 250 mg by mouth twice a day for 7 days. 2. Ascorbic acid 500 mg by mouth daily to improve iron absorption. 3. Iron 325 mg by mouth daily. 4. Acetaminophen 650 mg by mouth every 6 hours as needed. 5. Pantoprazole 40 mg by mouth twice a day. 6. Magnesium oxide 800 mg by mouth twice a day. 7. Carafate 1 g by mouth before meals and at bedtime. 8. Abilify 30 mg by mouth daily. 9. Amitriptyline 150 mg by mouth nightly. 10. Clonazepam 0.5 mg by mouth twice a day as needed. 11. Cyclobenzaprine 10 mg by mouth twice a day as needed. 12. Oxycodone with acetaminophen 5/325 two every 6 hours as needed. 13. Pravastatin 20 mg by mouth daily. 14. Quetiapine 50 mg by mouth nightly. Greater than 30 minutes spent on direct patient care and coordination of care on the day of discharge. SUSANA/david cc: Doretha Sibley, SAGE[facility] Centeno MD
[2017-02-06 01:27] LABS: IRON 239 ug/dL (50-212); TOTAL IRON BINDING CAPACITY 245 ug/dL (261-478); TRANSFERRIN 175 mg/dL (203-362)
--- NOTE | 2017-02-09 12:47 | SURGPATH ---
[facility] [address] [place] [address] Patient Name: JENY YE MR#: [id number] : 1950 Gender: F Specimen #: [id number] Collected: 02/02/2017 Received: 02/08/2017 Reported: 02/09/2017 Submitting Phys: CHIP FRIEDMAN Copy To Phys: SVITLANA FULTON [facility] NEHA HENRY II Clinical History / Pre-Operative Diagnosis: Upper GI bleed Specimen Source / Surgical Procedure Performed: #1-upper esophageal biopsy; #2-mid esophageal biopsy; #3-distal esophageal biopsy; #4-body of stomach; #5-gastroesophageal junction biopsy; #6-duodenal bulb biopsy Interpretation: 1. UPPER ESOPHAGUS, BIOPSY: - EXTENSIVE ULCERATION - NO FUNGAL ORGANISMS IDENTIFIED 2. MID ESOPHAGEAL BIOPSY: - EXTENSIVE ULCERATION - NO FUNGAL ORGANISMS IDENTIFIED 3. DISTAL ESOPHAGUS, BIOPSY: - EXTENSIVE ULCERATION - NO FUNGAL ORGANISMS IDENTIFIED 4. BODY OF STOMACH, BIOPSY: - NO PATHOLOGIC ABNORMALITIES 5. GASTROESOPHAGEAL JUNCTION, BIOPSY: - EXTENSIVE ULCERATION - NO FUNGAL ORGANISMS IDENTIFIED 6. DUODENAL BULB, BIOPSY: - EXTENSIVE ULCERATION Electronically Signed Out Luis A Magana M.D. Gross Description: #1 The specimen is received in a formalin filled container labeled with the patient's name and "upper esophageal biopsy". Three no biopsies are 0.2, 0.2 and 0.3 cm. Totally embedded in cassette #1. #2 The specimen is received in a formalin filled container labeled with the patient's name and "mid esophageal biopsy". Two no biopsies are 0.2 and 0.3 cm. Totally embedded in cassette #2. #3 The specimen is received in a formalin filled container labeled with the patient's name and "distal esophageal biopsy". A single no biopsy is 0.4 cm. Totally embedded in cassette #3. #4 The specimen is received in a formalin filled container labeled with the patient's name and "body of stomach". Two no biopsies are each 0.3 cm. Totally embedded in cassette #4. #5 The specimen is received in a formalin filled container labeled with the patient's name and "GE junction biopsy". Three no biopsies are 0.3, 0.3 and 0.4 cm. Totally embedded in cassette #5. #6 The specimen is received in a formalin filled container labeled with the patient's name and "duodenal bulb biopsy". Two no biopsies are each 0.2 cm. Totally embedded in cassette #6. Kathy Hector Microscopic Description: 1. The sections show predominantly fibrinopurulent material with a small amount of underlying inflamed squamous epithelium. The epithelium shows reactive changes without features of malignancy. A fungal PAS stain is negative for fungal organisms. 2. The sections show squamous epithelium with acute inflammation and extensive ulceration with fibrinopurulent material. The epithelium shows reactive changes without malignant features. A fungal PAS stain is negative for fungal organisms. 3. The sections show fibrinopurulent material containing only a few squamous epithelial cells. The fungal PAS stain is negative for fungal organisms. 4. The sections show fragments of gastric mucosa exhibiting a normal architectural pattern. There are no inflammatory or neoplastic features and there are no Helicobacter-like organisms identified. 5. The sections show predominantly fibrinopurulent material with only a small amount of attached reactive squamous epithelium. The fungal PAS stain is negative for fungal organisms. 6. These are the sections show fibrinopurulent material without underlying viable tissue. 1: 76529, 15872 2: 42990, 59906 3: 18866, 04144 4: 69526 5: 15270, 32654 6: 57816 K20.9
== END 2017-02-05 11:40 | disposition home or self-care (01) | DRG 377 ==
LOC: ED 08:05 → ICU 09:47 → MS 02-02 18:14
PROVIDERS: ADMIT Family Medicine; ATTEND Family Medicine
PROC: 0DB58ZX Excision of Esophagus, Via Natural or Artificial Opening Endoscopic, Diagnostic (ICD-10-PCS; principal; 2017-02-02)
PROC: 0DB98ZX Excision of Duodenum, Via Natural or Artificial Opening Endoscopic, Diagnostic (ICD-10-PCS; 2017-02-02)
PROC: 0DB68ZX Excision of Stomach, Via Natural or Artificial Opening Endoscopic, Diagnostic (ICD-10-PCS; 2017-02-02)
DX: K26.4 Chronic or unspecified duodenal ulcer with hemorrhage (principal); J15.9 Unspecified bacterial pneumonia; G92 Toxic encephalopathy; N17.9 Acute kidney failure, unspecified; D62 Acute posthemorrhagic anemia; K92.2 Gastrointestinal hemorrhage, unspecified; Z86.73 Personal history of transient ischemic attack (TIA), and cerebral infarction without residual deficits; I10 Essential (primary) hypertension; F41.8 Other specified anxiety disorders; G47.30 Sleep apnea, unspecified; Z79.891 Long term (current) use of opiate analgesic; E87.6 Hypokalemia; E83.42 Hypomagnesemia; I67.9 Cerebrovascular disease, unspecified; R52 Pain, unspecified; G47.33 Obstructive sleep apnea (adult) (pediatric); E66.8 Other obesity; Z68.32 Body mass index [BMI] 32.0-32.9, adult

== ENCOUNTER 2017-03-30 12:41 | Day surgery (SDC) | payer MEDICARE ==
[2017-03-30] MEDS ORDERED: LACTATED RINGERS 1,000 ML IV SCH (13:49)
[2017-03-30] MEDS ORDERED: ONDANSETRON 4 MG/2ML 2 ML VIAL IV PRN (13:49)
[2017-03-30] MEDS ORDERED: LIDOCAINE 1% 2 ML VIAL ID PRN (13:49)
[2017-03-30] MEDS ORDERED: PROPOFOL 0 ML IV ONE (14:22)
[2017-03-30] MEDS ORDERED: LIDOCAINE Viscous 2% 15 ML UDCUP ONE (14:30)
[2017-03-30] MEDS ORDERED: PROPOFOL 20 ML IV ONE (14:50)
[2017-03-30 19:47] LABS: HELICOBACTER PYLORII DETECTION NEGATIVE (NEGATIVE)
--- NOTE | 2017-04-06 14:21 | SURGPATH ---
[facility] [address] [place] [id number] Patient Name: JENY YE MR#: [id number] : 1950 Gender: F Specimen #: [id number] Collected: 03/30/2017 Received: 04/03/2017 Reported: 04/05/2017 Submitting Phys: CHIP FRIEDMAN Copy To Phys: SVITLANA FULTON [facility] Amended Report Reason: PATHOLOGIST UPDATE Comment: Additional slides show new diagnostic material Original Text will be in double brackets [[ ]] NEW TEXT WILL BE IN BOLD PRINT Addendum Present Clinical History / Pre-Operative Diagnosis: NONE PROVIDED Specimen Source / Surgical Procedure Performed: #1-ANTRAL BIOPSY; #2-MID ESOPHAGEAL BIOPSY HIGH PRIORITY DIAGNOSIS. REQUIRES CLINICAL ATTENTION Interpretation: 1. STOMACH, ANTRUM, BIOPSY: - MODERATE TO SEVERE CHRONIC ANTRAL GASTRITIS WITH ACTIVITY - ++HIGHLY SUSPICIOUS FOR CYTOMEGALOVIRUS INCLUSIONS, PENDING IMMUNOSTAIN - NO HELICOBACTER ORGANISMS SEEN ON IMMUNOSTAIN++ [[- HELICOBACTER IMMUNOSTAIN PENDING, TO FOLLOW IN A SUPPLEMENTAL REPORT]] 2. ESOPHAGUS, MID, BIOPSY: - ULCERATION WITH GRANULATION TISSUE AND FIBRINOPURULENT EXUDATE -++IMMUNOSTAINS FOR CMV AND HSV PENDING, TO FOLLOW IN A SUPPLEMENTAL REPORT - NO FUNGAL ORGANISMS SEEN ON PAS STAIN++ [[- PAS STAIN PENDING TO RULE OUT FUNGAL ORGANISMS, TO FOLLOW IN A SUPPLEMENTAL REPORT]] Comment: ++There are rare epithelial cells in the stomach biopsy which show features highly suspicious for cytomegalovirus inclusions. CMV immunostain will be performed, with a supplemental report to follow. Case discussed with Dr. Chip Friedman on 04/05/2017.++ Electronically Signed Out Adela Haney M.D. Addendum Date Reported: 04/10/2017 Signed Out Addendum Comment CMV and HSV1/ HSV2 immunostains are performed on both the antral and esophageal biopsies. ++The CMV immunstain highlights a viral inclusion in the antral stomach biopsy, confirming the presence of cytomegalovirus inclusions. HSV 1/HSV2 immunostains are negative, and the CMV immunostain is negative in the esophageal biopsy. Results discussed with Dr. Svitlana Fulton on 04/10/2017 by telephone. ++ [[Viral inclusions do not stain in either of these biopsies.]] (Analyte-specific reagents (ASR) are used in many laboratory tests necessary for standard medical care and generally do not require FDA approval. This test was developed and its performance characteristics determined by [facility]. It has not been cleared or approved by the U.S. Food and Drug Administration. [facility] is certified under the Clinical Laboratory Improvement Amendments of 1988 as qualified to perform high complexity clinical laboratory testing. All controls stain as expected.) lk/04/06/2017 Electronically Signed Out By Adela Haney M.D. Amendments for Addendum (04/06/2017) Amended: 04/10/2017 by Adela Haney M.D. Reason: PATHOLOGIST UPDATE immunostain is positive Previous Signout Date: 04/06/2017 A Gross Description: #1 The specimen is received in a formalin filled container labeled with the patient's name and "antral biopsy". Three aguilar-no biopsies are 0.3, 0.3 and 0.4 cm. Totally embedded in cassette #1. #2 The specimen is received in a formalin filled container labeled with the patient's name and "mid esophageal biopsy". Three aguilar biopsies are 0.2, 0.3 and 0.4 cm. Totally embedded in cassette #2. Kathy Hector Microscopic Description: Part 1: Antral mucosa shows moderate tosevere chronic inflammation within the lamina propria with multifocal activity. ++There are rare mucous neck cells which show enlarged smudged nuclei and stippled cytoplasmic inclusions, highly suspicious for CMV inclusions. A CMV immunostain and HSV I/II immunostain are pending. No Helicobacter organisms are seen on immunostain ++ [[A Helicobacter immunostain is pending.]] No lymphoepithelial lesions or atypical lymphocytes are seen. Part 2: Ulcerated is seen with fibrinopurulent exudate overlying granulation tissue. No definitive viral cytopathic effect is seen. ++A PAS stain is negative for fungal organisms. CMV and HSV I/II immunostains are pending.++ The adjacent squamous epithelium does not show increased intraepithelial eosinophils or neutrophils. There is papillary elongation. (Analyte-specific reagents (ASR) are used in many laboratory tests necessary for standard medical care and generally do not require FDA approval. This test was developed and its performance characteristics determined by [facility]. It has not been cleared or approved by the U.S. Food and Drug Administration. [facility] is certified under the Clinical Laboratory Improvement Amendments of 1988 as qualified to perform high complexity clinical laboratory testing. All controls stain as expected.) Amendments: Amended: 04/05/2017 by Adela Haney M.D. Previous Signout Date: 04/04/2017 1: 37738, 12734, 85461, 46696 2: 31224, 16617, 05235, 65825 K29.30 K22.10 B25.9
== END 2017-03-30 16:50 | disposition home or self-care (01) ==
LOC: SDC 12:41
PROVIDERS: ATTEND Surgery
DX: K22.11 Ulcer of esophagus with bleeding (principal); I10 Essential (primary) hypertension; E78.00 Pure hypercholesterolemia, unspecified; G47.33 Obstructive sleep apnea (adult) (pediatric)
CPT/HCPCS: 87081; 43239; A9270